=== PATIENT | female | born 1975 | race Caucasian/White ===

== ENCOUNTER 2021-12-04 22:20 | Emergency (ER) | payer OTHER ==
[2021-12-04 23:16] LABS: ESTIMATED GFR 71 mL/min (>60)
== END 2021-12-04 23:35 | disposition home or self-care (01) ==
LOC: FB.ED 22:20
DX: I49.3 Ventricular premature depolarization (principal)
CPT/HCPCS: 36415; 80048; 83735; 85025; 93005; 93010; 99282; 99285